=== PATIENT | female | born 1940 | race Caucasian/White ===

== ENCOUNTER → 2018-06-18 | Outpatient (CLI) | payer MEDICARE, BC ==
--- NOTE | 2018-06-18 11:26 | MR ---
EXAMINATION TYPE: MR brain wo/w con DATE OF EXAM: 06/18/2018 COMPARISON: HISTORY: Transient cerebral ischemic attack TECHNIQUE: Multiplanar, multisequence images of the brain and brainstem is performed without and with IV contras t, utilizing 6 mL intravenous Gadavist . FINDINGS: Diffusion weighted images demonstrate no evidence of a recent infarct or other diffusion ab normality. There is metal artifact which distorts portions of the facial structures. Changes of chronic sinusiti s noted. Ventricular system midline with moderate generalized degenerative change. Diffuse and cristobal us focal areas of abnormal signal the white matter are nonspecific. Midline structures demonstrate normal morphology. The craniocervical junction appears within normal limits. Post contrast images demonstrate no abnormal enhancement.. IMPRESSION: 1. 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
== END ==
LOC: RADMRIMAIN 09:45
PROVIDERS: ATTEND Internal Medicine Geriatric Medicine
DX: G45.9 Transient cerebral ischemic attack, unspecified (principal)
CPT/HCPCS: 70553; A9581